=== PATIENT | male | born 1995 | race Caucasian/White ===

== ENCOUNTER 2017-11-02 20:16 | Emergency (ER) | payer BC ==
[2017-11-02 20:25] VITALS: BP 148/87; PULSE 110; RESP 18; TEMP 97.4
--- NOTE | 2017-11-02 20:46 | ED ---
General Adult HPI - General Chief complaint: Skin/Abscess/Foreign Body Stated complaint: skin problems Time Seen by Provider: 11/02/17 20:23 Source: patient, RN notes reviewed Mode of arrival: ambulatory Limitations: no limitations - History of Present Illness Initial comments: Patient 22-year-old male who presents emergency room today with a chief complaint of a rash. He does admit that he woke up yesterday with rash to the left wrist. He states it is a burning sensation locally. He states it started with some blisters and is now draining. He did go to the family doctor earlier today and was given a antibiotic which she has not started at this time. He states he now has noticed that there are some spots to his abdomen which are blistering over and also burning and stinging. He denies any other complaints or symptoms. Denies ever having similar symptoms in the past. Patient denies any recent fever, chills, shortness of breath, chest pain, back pain, abdominal pain, nausea or vomiting, headaches or visual changes, or any other complaints. - Related Data Previous Rx's Medication Instructions Recorded Ibuprofen [Motrin] 600 mg PO Q6HR PRN #40 day 11/02/17 valACYclovir HCL [Valtrex] 1,000 mg PO TID #21 tablet 11/02/17 Allergies Allergy/AdvReac Type Severity Reaction Status Date / Time No Known Allergies Allergy Verified 11/02/17 20:25 Review of Systems ROS Statement: Those systems with pertinent positive or pertinent negative responses have been documented in the HPI. ROS Other: All systems not noted in ROS Statement are negative. Past Medical History Additional Past Medical History / Comment(s): dsylimia History of Any Multi-Drug Resistant Organisms: None Reported Past Surgical History: No Surgical Hx Reported Past Psychological History: No Psychological Hx Reported Smoking Status: Never smoker Past Alcohol Use History: None Reported Past Drug Use History: None Reported General Exam - General Exam Comments Initial Comments: General: The patient is awake and alert, in no distress, and does not appear acutely ill. Eye: Pupils are equal, round and reactive to light, extra-ocular movements are intact. No nystagmus. There is normal conjunctiva bilaterally. No signs of icterus. Ears, nose, mouth and throat: There are moist mucous membranes and no oral lesions. Neck: The neck is supple, there is no tenderness or JVD. Cardiovascular: There is a regular rate and rhythm. No murmur, rub or gallop is appreciated. Respiratory: Lungs are clear to auscultation, respirations are non-labored, breath sounds are equal. No wheezes, stridor, rales, or rhonchi. Musculoskeletal: Normal ROM, no tenderness. Strength 5/5. Sensation intact. Pulses equal bilaterally 2+. Neurological: A&O x 3. CN II-XII intact, There are no obvious motor or sensory deficits. Coordination appears grossly intact. Speech is normal. Skin: Patient does have red erythematous area to the lateral aspect of the left wrist. There is some weeping drainage that is a yellow color. One small vesicle seen just away from this area. There is redness and erythema and scattered papule spots to the left side of the lower abdomen. There are some vesicle area seen on the abdomen as well no active drainage. Psychiatric: Cooperative, appropriate mood & affect, normal judgment. Limitations: no limitations Course Vital Signs 11/02/17 20:22 Temperature 97.4 F L Pulse Rate 110 H Respiratory 18 Rate Blood Pressure 148/87 O2 Sat by Pulse 100 Oximetry Medical Decision Making - Medical Decision Making Patient's rash appears to be consistent with viral etiology. Lab swab is pending at this time but patient will be started on antiviral medications. He is advised follow-up family doctor the next 2 days return here to the emergency room symptoms increase worsen. Disposition Clinical Impression: Rash Disposition: HOME SELF-CARE Condition: Good Instructions: Genital Herpes Simplex (ED) Additional Instructions: Please use medication as prescribed. Follow-up the family doctor next 2 days return here to the emergency room symptoms increase or worsen or for any other concerns. Prescriptions: Ibuprofen [Motrin] 600 mg PO Q6HR PRN #40 day PRN Reason: Pain valACYclovir HCL [Valtrex] 1,000 mg PO TID #21 tablet Referrals: None,Stated [Primary Care Provider] - 1-2 days Torie Warner MD [REFERRING] - 1-2 days Hossein Reyes DO [STAFF PHYSICIAN] - 1-2 days Time of Disposition: 20:49
== END 2017-11-02 21:10 | disposition home or self-care (01) ==
LOC: EC 20:16
DX: R21 Rash and other nonspecific skin eruption (principal)
CPT/HCPCS: 87529; 99283

== ENCOUNTER 2018-02-18 15:04 | Emergency (ER) | payer BC ==
[2018-02-18 15:15] VITALS: BP 144/75; PULSE 95; RESP 18; TEMP 98.3
--- NOTE | 2018-02-18 15:51 | ED ---
General Adult HPI - General Chief complaint: Extremity Injury, Upper Stated complaint: Fall/Shoulder Pain Time Seen by Provider: 02/18/18 15:19 Source: patient, RN notes reviewed Mode of arrival: ambulatory Limitations: no limitations - History of Present Illness Initial comments: 22-year-old male presents to the emergency department for a chief complaint of left shoulder pain times one day. Patient states he fell off his porch earlier onto his left shoulder. Patient did not hit his head or lose consciousness. Patient did not sustain any other injuries. Patient states the pain is only in his left shoulder. Patient states it is painful to move it. Patient has not tried anything for pain or ice it. Patient states it feels better when he rests it. Patient has no other complaints at this time including shortness of breath, chest pain, abdominal pain, nausea or vomiting, headache, or visual changes. - Related Data Previous Rx's Medication Instructions Recorded Ibuprofen [Motrin] 600 mg PO Q6HR PRN #40 day 11/02/17 valACYclovir HCL [Valtrex] 1,000 mg PO TID #21 tablet 11/02/17 Ibuprofen [Motrin] 600 mg PO Q8HR PRN #20 tab 02/18/18 Allergies Allergy/AdvReac Type Severity Reaction Status Date / Time No Known Allergies Allergy Verified 02/18/18 15:15 Review of Systems ROS Statement: Those systems with pertinent positive or pertinent negative responses have been documented in the HPI. ROS Other: All systems not noted in ROS Statement are negative. Past Medical History Past Medical History: No Reported History Additional Past Medical History / Comment(s): dsylimia History of Any Multi-Drug Resistant Organisms: None Reported Past Surgical History: No Surgical Hx Reported Past Psychological History: No Psychological Hx Reported Smoking Status: Current some day smoker Past Alcohol Use History: None Reported, Occasional Past Drug Use History: Marijuana General Exam Limitations: no limitations General appearance: alert, in no apparent distress Head exam: Present: atraumatic, normocephalic, normal inspection Eye exam: Present: normal appearance, PERRL, EOMI. Absent: scleral icterus, conjunctival injection, periorbital swelling ENT exam: Present: normal exam, mucous membranes moist Neck exam: Present: normal inspection, full ROM. Absent: tenderness, meningismus, lymphadenopathy Respiratory exam: Present: normal lung sounds bilaterally. Absent: respiratory distress, wheezes, rales, rhonchi, stridor Cardiovascular Exam: Present: regular rate, normal rhythm, normal heart sounds. Absent: systolic murmur, diastolic murmur, rubs, gallop, clicks Extremities exam: Present: tenderness (Tenderness to the lateral aspect of the left shoulder. No tenderness in the rest of the left upper extremity. No tenderness in the neck or back.), normal capillary refill (Refill less than 2 seconds and radial pulse 2+ in the left upper extremity), other (Sensation intact in the left upper extremity.). Absent: full ROM (Patient has about 60 abduction of the left shoulder, 90 flexion. 30 extension.), joint swelling ( No swelling, redness, ecchymosis, or abrasions noted of the left shoulder.) Back exam: Present: normal inspection, full ROM. Absent: tenderness (No tenderness in the cervical, thoracic, or lumbar spines.) Neurological exam: Present: alert, oriented X3, CN II-XII intact, other (GCS 15) Course Vital Signs 02/18/18 15:12 Temperature 98.3 F Pulse Rate 95 Respiratory 18 Rate Blood Pressure 144/75 O2 Sat by Pulse 99 Oximetry Medical Decision Making - Medical Decision Making 22-year-old male presents to the emergency department for a chief complaint of left shoulder pain times one day. Patient fell off the porch onto his left shoulder. He did not hit his head or sustain any other injuries. On exam patient does have some limited range of motion of the left shoulder. Neurovascular intact in the left upper extremity. [employer] strength 5 out of 5 in bilateral hands. No swelling, ecchymosis, or abrasions noted to the left shoulder. X-ray shows humeral head articulates with the glenoid. The AC junction is normal. No acute fractures or dislocations evident in the left shoulder. Patient likely has a contusion of the left lateral shoulder. Patient will be given Motrin for pain. He is to rest and ice the left shoulder. He is to follow up with primary care in 1-2 days. Patient is aware that if pain continues he may need additional outpatient testing. He is to return to the emergency department if he has any other worsening symptoms. Disposition Clinical Impression: Shoulder pain, left Disposition: HOME SELF-CARE Condition: Good Instructions: Shoulder Pain (ED) Additional Instructions: Please take Motrin for pain. Please rest and ice the left shoulder. Return to the emergency department if you have any worsening symptoms. Follow up with primary care in 1-2 days. If symptoms do not resolve you may need to follow-up with orthopedics. Prescriptions: Ibuprofen [Motrin] 600 mg PO Q8HR PRN #20 tab PRN Reason: Pain Is patient prescribed a controlled substance at d/c from ED?: No Referrals: Rashaad Barcenas MD [STAFF PHYSICIAN] - 1-2 days Time of Disposition: 15:51
--- NOTE | 2018-02-18 16:37 | XR ---
EXAMINATION TYPE: XR shoulder complete LT DATE OF EXAM: 02/18/2018 COMPARISON: NONE HISTORY: Pain TECHNIQUE: Shoulder examined in 3 views FINDINGS: The humeral head articulates with the glenoid. The acromio-clavicular junction is normal. No acute fractures or dislocations are evident. A follow up study can be performed 7-10 days from acute trauma for continued pain. IMPRESSION: 1. Normal Shoulder
== END 2018-02-18 16:46 | disposition home or self-care (01) ==
LOC: EC 15:04
DX: M25.512 Pain in left shoulder (principal); F17.200 Nicotine dependence, unspecified, uncomplicated; W17.89XA Other fall from one level to another, initial encounter
CPT/HCPCS: 99283

== ENCOUNTER 2019-09-25 09:06 | Day surgery (SDC) | payer BC ==
[2019-09-23 09:48] VITALS: BMI 32.6
[~2019-09-25 09:06] MED LIST: LACTATED RINGERS 1,000 ML IV SCH; LIDOCAINE 1% 20 ML VIAL (10MG/ML) FOR IV START INTRADERMA PRN
[2019-09-25 09:48] VITALS: TEMP 97.3
[2019-09-25] MEDS ORDERED: PROPOFOL 10 MG/ML 20 ML VIAL IV ONE (10:22)
--- NOTE | 2019-09-25 10:40 | P.GSHP ---
History of Present Illness H&P Date: 09/25/19 Chief Complaint: GI bleed This a 24-year-old male who presents today for colonoscopy. Patient's had issues with rectal bleeding. Past Medical History Past Medical History: No Reported History Additional Past Medical History / Comment(s): " BLOOD IN TOILET" AT TIMES History of Any Multi-Drug Resistant Organisms: None Reported Past Surgical History: No Surgical Hx Reported Past Anesthesia/Blood Transfusion Reactions: No Reported Reaction Additional Past Anesthesia/Blood Transfusion Reaction / Comment(s): FIRST ANESTHESIA Smoking Status: Current some day smoker - Past Family History Mother Family Medical History: No Reported History Medications and Allergies Home Medications Medication Instructions Recorded Confirmed Type Ascorbic Acid [Vitamin C] 1,000 mg PO DAILY 09/23/19 09/25/19 History [place] Oil 1 cap PO DAILY 09/23/19 09/25/19 History Cod Liver Oil 1 each PO DAILY 09/23/19 09/25/19 History Folic Acid 800 mcg PO DAILY 09/23/19 09/25/19 History Allergies Allergy/AdvReac Type Severity Reaction Status Date / Time No Known Allergies Allergy Verified 09/23/19 09:21 Surgical - Exam Vital Signs Temp Pulse Resp BP Pulse Ox 97.3 F L 86 16 149/86 97 09/25/19 09:43 09/25/19 09:43 09/25/19 09:43 09/25/19 09:43 09/25/19 09:43 - General well developed, well nourished, no distress - Eyes PERRL - ENT normal pinna - Neck no masses - Respiratory normal expansion - Cardiovascular Rhythm: regular - Abdomen Abdomen: soft, non tender Assessment and Plan Assessment: GI bleed. We'll perform colonoscopy.
--- NOTE | 2019-09-25 10:50 | P.OP ---
Date of Procedure: 09/25/19 Preoperative Diagnosis: GI bleed Postoperative Diagnosis: Normal colonoscopy Procedure(s) Performed: Colonoscopy Anesthesia: MAC Surgeon: Del Huff Pathology: none sent Condition: stable Disposition: PACU Description of Procedure: N PROCEDURE: The patient was placed on the endoscopy table in the lateral position. Digital rectal examination was performed which revealed no abnormalities. The prostate was symmetrical without nodules. Flexible colonoscope was then placed in the patient's anus and passed throughout the entire colon. The ileocecal valve was visualized. The cecum, ascending, transverse, descending and sigmoid colon were normal. The rectum was normal as well. There were no masses, polyps or diverticula noted in the entire colon. SUMMARY OF FINDINGS: Normal colonoscopy.
[2019-09-25 11:22] VITALS: BP 115/76; PULSE 89; RESP 16
== END 2019-09-25 11:26 | disposition home or self-care (01) ==
LOC: ORWHC2ENDO 09:06
PROVIDERS: ATTEND Surgery
DX: K92.2 Gastrointestinal hemorrhage, unspecified (principal); F17.200 Nicotine dependence, unspecified, uncomplicated; Z79.899 Other long term (current) drug therapy
CPT/HCPCS: 45378; J2704

== ENCOUNTER 2021-08-01 12:41 | Emergency (ER) | payer BC ==
[2021-08-01 13:38] VITALS: TEMP 99
[2021-08-01] MEDS ORDERED: SODIUM CHLORIDE 0.9% 2,000 ML IV STA (15:12)
--- NOTE | 2021-08-01 15:24 | ED ---
General Adult HPI - General Chief complaint: Nausea/Vomiting/Diarrhea Stated complaint: Diarrhea,dehydration Time Seen by Provider: 08/01/21 14:58 Source: patient, RN notes reviewed Mode of arrival: ambulatory Limitations: no limitations - History of Present Illness Initial comments: 26-year-old male present emergency from chief complaint of dehydration. Patient states she seen at will not urgent care and sent over for further evaluation. Patient with diagnosis strep pharyngitis swallow one week ago was placed on amoxicillin. Patient states over the last 24 hours he's had severe loose watery diarrhea. Patient states that she feels very weak, run down he had a near syncopal episode at urgent care. Patient sent here for further evaluation. - Related Data Home Medications Medication Instructions Recorded Confirmed Amoxicillin 1,000 mg PO DAILY 08/01/21 08/01/21 Escitalopram Oxalate [Lexapro] 10 mg PO DAILY@1200 08/01/21 08/01/21 Previous Rx's Medication Instructions Recorded Azithromycin [Zithromax] 500 mg PO DAILY #3 tab 08/01/21 Allergies Allergy/AdvReac Type Severity Reaction Status Date / Time No Known Allergies Allergy Verified 08/01/21 16:58 Review of Systems ROS Statement: Those systems with pertinent positive or pertinent negative responses have been documented in the HPI. ROS Other: All systems not noted in ROS Statement are negative. Past Medical History Past Medical History: No Reported History Additional Past Medical History / Comment(s): " BLOOD IN TOILET" AT TIMES History of Any Multi-Drug Resistant Organisms: None Reported Past Surgical History: No Surgical Hx Reported Past Anesthesia/Blood Transfusion Reactions: No Reported Reaction Additional Past Anesthesia/Blood Transfusion Reaction / Comment(s): FIRST ANESTHESIA Past Psychological History: No Psychological Hx Reported Smoking Status: Never smoker Past Alcohol Use History: Occasional Past Drug Use History: None Reported - Past Family History Mother Family Medical History: No Reported History General Exam Limitations: no limitations General appearance: alert, in no apparent distress Head exam: Present: atraumatic, normocephalic, normal inspection Eye exam: Present: normal appearance, PERRL, EOMI. Absent: scleral icterus, conjunctival injection, periorbital swelling ENT exam: Present: mucous membranes moist. Absent: normal exam, normal oropharynx (Mild erythema) Neck exam: Present: normal inspection, full ROM. Absent: tenderness, meningismus, lymphadenopathy Respiratory exam: Present: normal lung sounds bilaterally. Absent: respiratory distress, wheezes, rales, rhonchi, stridor Cardiovascular Exam: Present: regular rate, normal rhythm, normal heart sounds. Absent: systolic murmur, diastolic murmur, rubs, gallop, clicks GI/Abdominal exam: Present: soft, normal bowel sounds. Absent: distended, tenderness, guarding, rebound, rigid Course Vital Signs 08/01/21 13:35 Temperature 99 F Pulse Rate 92 Respiratory 16 Rate Blood Pressure 127/90 O2 Sat by Pulse 99 Oximetry Medical Decision Making - Medical Decision Making 26-year-old presented for possible dehydration. Patient was given 2 L of fluids. Patient did have moderate metabolic acidosis related to dehydration, diarrhea. Patient was C. diff negative will be discharged in stable condition. Patient feels comfortable discharge patient will be given 3 pills of azithromycin finished a course for his strep pharyngitis. - Lab Data Result diagrams: 08/01/21 15:34 08/01/21 15:34 Lab Results 08/01/21 08/01/21 08/01/21 Range/Units 13:39 15:34 15:34 WBC 10.2 (3.8-10.6) k/uL RBC 5.73 (4.30-5.90) m/uL Hgb 17.2 (13.0-17.5) gm/dL Hct 49.9 (39.0-53.0) % MCV 87.0 (80.0-100.0) fL MCH 30.0 (25.0-35.0) pg MCHC 34.5 (31.0-37.0) g/dL RDW 13.0 (11.5-15.5) % Plt Count 200 (150-450) k/uL MPV 8.9 Neutrophils % 68 % Lymphocytes % 16 % Monocytes % 12 % Eosinophils % 0 % Basophils % 1 % Neutrophils # 6.9 (1.3-7.7) k/uL Lymphocytes # 1.7 (1.0-4.8) k/uL Monocytes # 1.2 H (0-1.0) k/uL Eosinophils # 0.0 (0-0.7) k/uL Basophils # 0.1 (0-0.2) k/uL Sodium 134 L (137-145) mmol/L Potassium 4.5 (3.5-5.1) mmol/L Chloride 103 (98-107) mmol/L Carbon Dioxide 15 L (22-30) mmol/L Anion Gap 16 mmol/L BUN 13 (9-20) mg/dL Creatinine 1.12 (0.66-1.25) mg/dL Est GFR (CKD-EPI)AfAm >90 (>60 ml/min/1.73 sqM) Est GFR (CKD-EPI)NonAf 90 (>60 ml/min/1.73 sqM) Glucose 92 (74-99) mg/dL Calcium 9.1 (8.4-10.2) mg/dL Total Bilirubin 0.6 (0.2-1.3) mg/dL AST 36 (17-59) U/L ALT 69 H (4-49) U/L Alkaline Phosphatase 62 (38-126) U/L Total Protein 8.0 (6.3-8.2) g/dL Albumin 4.4 (3.5-5.0) g/dL Amylase 47 (30-110) U/L Lipase 117 (23-300) U/L C. difficile (EIA) Intrp (Negative) Coronavirus (PCR) Not Detected (Not Detectd) 08/01/21 Range/Units 15:34 WBC (3.8-10.6) k/uL RBC (4.30-5.90) m/uL Hgb (13.0-17.5) gm/dL Hct (39.0-53.0) % MCV (80.0-100.0) fL MCH (25.0-35.0) pg MCHC (31.0-37.0) g/dL RDW (11.5-15.5) % Plt Count (150-450) k/uL MPV Neutrophils % % Lymphocytes % % Monocytes % % Eosinophils % % Basophils % % Neutrophils # (1.3-7.7) k/uL Lymphocytes # (1.0-4.8) k/uL Monocytes # (0-1.0) k/uL Eosinophils # (0-0.7) k/uL Basophils # (0-0.2) k/uL Sodium (137-145) mmol/L Potassium (3.5-5.1) mmol/L Chloride (98-107) mmol/L Carbon Dioxide (22-30) mmol/L Anion Gap mmol/L BUN (9-20) mg/dL Creatinine (0.66-1.25) mg/dL Est GFR (CKD-EPI)AfAm (>60 ml/min/1.73 sqM) Est GFR (CKD-EPI)NonAf (>60 ml/min/1.73 sqM) Glucose (74-99) mg/dL Calcium (8.4-10.2) mg/dL Total Bilirubin (0.2-1.3) mg/dL AST (17-59) U/L ALT (4-49) U/L Alkaline Phosphatase (38-126) U/L Total Protein (6.3-8.2) g/dL Albumin (3.5-5.0) g/dL Amylase (30-110) U/L Lipase (23-300) U/L C. difficile (EIA) Intrp Negative (Negative) Coronavirus (PCR) (Not Detectd) Disposition Clinical Impression: Dehydration, Diarrhea, Strep pharyngitis Disposition: HOME SELF-CARE Condition: Stable Instructions (If sedation given, give patient instructions): Acute Diarrhea (ED) Additional Instructions: Please return to the Emergency Department if symptoms worsen or any other concerns. Prescriptions: Azithromycin [Zithromax] 500 mg PO DAILY #3 tab Is patient prescribed a controlled substance at d/c from ED?: No Referrals: Atiya Minaya DO [Primary Care Provider] - 1-2 days Time of Disposition: 17:20
[2021-08-01 16:08] LABS: ALT 69 U/L (4-49); AST 36 U/L (17-59); African American GFR (CKD) >90 (>60 ml/min/1.73 sqM); Albumin 4.4 g/dL (3.5-5.0); Alkaline Phosphatase 62 U/L (38-126); Amylase 47 U/L (30-110); Anion Gap 16 mmol/L; Blood Urea Nitrogen 13 mg/dL (9-20); Calcium 9.1 mg/dL (8.4-10.2); Carbon Dioxide 15 mmol/L (22-30); Chloride 103 mmol/L (98-107); Glucose 92 mg/dL (74-99); Lipase 117 U/L (23-300); Non-African American GFR(CKD) 90 (>60 ml/min/1.73 sqM); Sodium 134 mmol/L (137-145); Total Bilirubin 0.6 mg/dL (0.2-1.3)
[2021-08-01 16:13] LABS: Potassium 4.5 mmol/L (3.5-5.1)
[2021-08-01 17:07] LABS: Basophils # (A) 0.1 k/uL (0-0.2); Basophils % (A) 1 %; Eosinophils % (A) 0 %; HCT 49.9 % (39.0-53.0); HGB 17.2 gm/dL (13.0-17.5); Lymphocytes # (A) 1.7 k/uL (1.0-4.8); Lymphocytes % (A) 16 %; MCHC 34.5 g/dL (31.0-37.0); Mean Platelet Volume 8.9; Monocytes # (A) 1.2 k/uL (0-1.0); Monocytes % (A) 12 %; Neutrophils # (A) 6.9 k/uL (1.3-7.7); Neutrophils % (A) 68 %; Platelet Count 200 k/uL (150-450); RBC 5.73 m/uL (4.30-5.90); WBC 10.2 k/uL (3.8-10.6)
[2021-08-01] MEDS ORDERED: DIPHENOX-ATROP STARTER PACK 8 TAB BTL PO STA (17:19)
[2021-08-01 17:43] VITALS: BP 124/61; PULSE 70; RESP 18
== END 2021-08-01 17:41 | disposition home or self-care (01) ==
LOC: EC 12:41
DX: E86.0 Dehydration (principal); R19.7 Diarrhea, unspecified; J02.0 Streptococcal pharyngitis; Z20.822 Contact with and (suspected) exposure to COVID-19
CPT/HCPCS: 80053; 82150; 83690; 85025; 87324; 87635; 99284; 96365; J0696

== ENCOUNTER → 2022-01-27 | Outpatient (CLI) | payer BC, OTHER ==
--- NOTE | 2022-01-27 22:45 | US ---
EXAMINATION TYPE: US scrotum with doppler. Grayscale and color Doppler Duplex imaging performed of kim curry scrotum. DATE OF EXAM: 01/27/2022 COMPARISON: NONE CLINICAL HISTORY: N50.89 Scrotal pain/swelling. Pt states right testicle migrates towards right ingui nal canal. He states he has noticed this all of his life. EXAM MEASUREMENTS: TESTICLES: Right Testicle: 3.4 x 1.7 x 2.5 cm Left Testicle: 3.6 x 2.0 x 3.0 cm EPIDIDYMIS HEAD: Right Epididymis: 1.0 cm Left Epididymis: 1.3 cm Doppler performed to assess for testicular vascularity; good bilateral color flow and waveforms are s een. . Presence of hydroceles: No Presence of varicoceles: No Bilateral testicles appeared wnl, tech notes during exam that the right testicle was located within the right scrotal sac, not the inguinal canal. IMPRESSION: Unremarkable study.
== END | disposition home or self-care (01) ==
LOC: RADUSWWP 13:54
PROVIDERS: ATTEND Urology
DX: N50.89 Other specified disorders of the male genital organs (principal)
CPT/HCPCS: 76870; 93975

== ENCOUNTER 2022-04-29 11:56 | Day surgery (SDC) | payer OTHER ==
[2022-04-28 13:08] VITALS: BMI 32.5
--- NOTE | 2022-04-29 09:54 | P.HPIHPCON ---
History of Present Illness Chief Complaint: right sided retractile testicle this is a 27-year-old male with history of a right-sided retractile testicle. Option of continued observation versus a orchiopexy was discussed with him. Discussed the risk of surgery which includes but not limited to bleeding, infection, injury to the testicle, injury to the vas, persistent retractile testicle. Discussed also risks of anesthesia. He understood all risks and agree to proceed with right-sided orchiopexy Consent for Procedure: I have explained the operation/procedure to the patient, including the risks, benefits, side effects, alternative therapies (including not receiving the proposed treatment or service), the likelihood of the patient achieving his/her goals, and potential recuperation problems for the procedure/sedation/analgesia, as well as any blood products, if indicated. I also explained to the patient the risks, benefits and side effects of the alternatives, as well as the risks related to not receiving the proposed procedure, care, treatment, or services. Past Medical History Past Medical History: No Reported History Additional Past Medical History / Comment(s): " BLOOD IN TOILET" AT TIMES History of Any Multi-Drug Resistant Organisms: None Reported Past Surgical History: No Surgical Hx Reported Additional Past Surgical History / Comment(s): colonoscopy Past Anesthesia/Blood Transfusion Reactions: No Reported Reaction Additional Past Anesthesia/Blood Transfusion Reaction / Comment(s): . Smoking Status: Former smoker - Past Family History Mother Family Medical History: No Reported History Medications and Allergies Home Medications Medication Instructions Recorded Confirmed Type Escitalopram Oxalate [Lexapro] 10 mg PO W/LUNCH 08/01/21 04/28/22 History Emtricitabine/Tenofovir (Tdf) 2 tab PO DIRECTED PRN 04/28/22 04/28/22 History [Truvada 200 mg-300 mg Tablet] Allergies Allergy/AdvReac Type Severity Reaction Status Date / Time No Known Allergies Allergy Verified 04/28/22 13:01 Surgical - Exam - General no distress, no pain - Eyes normal ocular movement - ENT normal nares, normal mucosa - Abdomen Abdomen: soft, non tender - Genitourinary right-sided retractile testicle Assessment and Plan Assessment: or for right-sided orchiopexy
[~2022-04-29 11:56] MED LIST changes: +DEXAMETHASONE SOD PHOSPHATE 4 MG/ML 1 ML VIAL IV ONE; +HYDROmorphone 0.5 MG/0.5 ML SYRINGE IVP PRN; -LIDOCAINE 1% 20 ML VIAL (10MG/ML) FOR IV START INTRADERMA PRN; +MIDAZOLAM 2 MG/2 ML VIAL IV PRN; +ONDANSETRON 4 MG/2 ML VIAL IVP ONE; +SCOPOLAMINE 1 MG/72 HR PATCH TRANSDERM ONE
[2022-04-29 12:35] LABS: Glucose,Whole Blood 87 mg/dL (70-110)
[2022-04-29] MEDS ORDERED: HYDROmorphone (PF) 1 MG/ML ONE (13:07)
[2022-04-29] MEDS ORDERED: MIDAZOLAM 2 MG/2 ML VIAL ONE (13:07)
[2022-04-29] MEDS ORDERED: PROPOFOL 10 MG/ML 20 ML VIAL IV ONE (13:07)
[2022-04-29] MEDS ORDERED: fentaNYL (PF) 50 MCG/ML 2 ML AMP ONE (13:07)
[2022-04-29] MEDS ORDERED: LACTATED RINGERS 1,000 ML IV ONE ×2 (13:08→14:44)
[2022-04-29] MEDS ORDERED: BUPIVACAINE (PF) 0.5% 30 ML VIAL MISCELLANE ONE (13:35)
[2022-04-29 14:19] VITALS: TEMP 97
--- NOTE | 2022-04-29 14:20 | P.OP ---
Date of Procedure: 04/29/22 Preoperative Diagnosis: Right undescended testicle Postoperative Diagnosis: Same Procedure(s) Performed: Right scrotal orchiopexy Implants: None Anesthesia: GAURAVA Surgeon: Tino Edwards Estimated Blood Loss (ml): 5 Pathology: none sent Condition: stable Disposition: PACU Indications for Procedure: this is a 27-year-old male with history of a right-sided retractile testicle. Option of continued observation versus a orchiopexy was discussed with him. Discussed the risk of surgery which includes but not limited to bleeding, infection, injury to the testicle, injury to the vas, persistent retractile testicle. Discussed also risks of anesthesia. He understood all risks and agree to proceed with right-sided orchiopexy Description of Procedure: Patient brought to the operating room, general anesthesia was induced. He was prepped and draped in sterile fashion and placed in a supine position. Incision was made along the right hemiscrotum. Next dartos fascia was incised using electrocautery. Next the testicle was encountered was delivered to the field. No abnormality was visualized within the testicle. At this point attention was carried to the cord, the cremasteric fibers were released off of the cord. Whi ch allowed additional mobility of the testicle. After releasing the cremasteric fibers there was no longer tethering of the testicle. At this time the testicle was pexied using 4-0 PDS In 2 locations. The testicle was returned to the scrotum, testicle was viable there was no evidence of injury to the testicle. The dartos fascia was closed using 4-0 Vicryl. The skin was closed using 4-0 Monocryl. Local anesthetics was infiltrated. Dermabond was applied to the incision. Patient was awakened from anesthesia and taken to recovery in stable condition
[2022-04-29 14:58] VITALS: RESP 18
[2022-04-29 15:16] VITALS: BP 131/82; PULSE 68
== END 2022-04-29 15:51 | disposition home or self-care (01) ==
LOC: OR 11:56
PROVIDERS: ATTEND Urology
DX: Q55.22 Retractile testis (principal); Q53.10 Unspecified undescended testicle, unilateral; Z87.891 Personal history of nicotine dependence; F32.A Depression, unspecified; Z98.890 Other specified postprocedural states; Z79.899 Other long term (current) drug therapy
CPT/HCPCS: 54640; J2250; J1100; J0690; J2405; J3010; J1170; J2704